=== PATIENT | female | born 1995 | race Caucasian/White ===

== ENCOUNTER 2018-02-02 11:13 | Emergency (ER) | payer OTHER ==
[~2018-02-02] VITALS: Ht 157.5 cm; Wt 45.4 kg
[~2018-02-02 11:13] MED LIST: BENTYL 10 MG CA10 MG PO; FLEXERIL10 MG PO; MOTRIN 600 MG600 MG PO; MULTIVITAMIN1 TAB PO; PEPCID40 MG PO; PERCOCET 325 MG1 TA2 PO; PHENERGAN12.5 M1 PO; VITAMIN C500 M3 PO; ZOFRAN4 M1 SL
--- NOTE | 2018-02-02 12:22 | ED GI/GU/ABDOMINAL COMPLAINT ---
History of Present Illness General Chief Complaint: Nausea, Vomiting, Diarrhea Stated Complaint: STOMACH PAIN,VOMITING,NAUSEA Source: patient, family Exam Limitations: no limitations Allergies Coded Allergies: NO KNOWN ALLERGIES (02/12/15) Triage Note: RECEVED 22 YO FEMALE C/O MID ABDOMINAL PAIN, STARTED THIS AM WITH NAUSEA AND VOMITING MULTIPLE TIMES. PT VOMITING IN TRIAGE, ALMOST FALLING TO THE GROUND. Triage Nurses Notes Reviewed? yes ? y Is pt currently ? No Onset: Abrupt Duration: hour(s): Timing: single episode today Quality/Severity: sharpness, severe Severity Numbers: 10 Location: epigastric HPI: 22yo female G1PO ?4-6weeks presents to ED complaining of severe, sharp epigastric abdominal pain beginning abruptly this morning. Pain described as 10 /10. Patient also with episodes of nausea and vomiting and diarrhea beginning this morning as well. Patient is on short of her last menstrual period, had a home test that was positive last week. Patient has not seen an [employer] [facility] yet for this . Patient states that she does not plan on keeping the . Patient denies history of similar abdominal pain in the past. (Ashanti GARCIA,Anusha Morales) Vital Signs & Intake/Output Vital Signs & Intake/Output Vital Signs Date Time Temp Pulse Resp B/P B/P Pulse O2 O2 Flow FiO2 Mean Ox Delivery Rate 02/02 1903 98.9 100 18 100/56 100 02/02 1804 97.2 98 18 102/65 100 Room Air 02/02 1721 97.0 63 18 117/71 99 Room Air 02/02 1553 120 106/56 02/02 1505 96.2 117 18 97/69 100 Room Air 02/02 1345 Room Air 02/02 1326 97.2 65 18 84/52 100 Room Air 02/02 1139 97.0 102 18 113/77 99 Room Air Reconcile Medications No Known Home Medications (Maryanne CHAUHAN,Dianna) Past History Travel History Traveled to [place] past 21 day No Medical History Any Pertinent Medical History? none Neurological: DENIES EENT: NONE Cardiovascular: NONE Respiratory: NONE Gastrointestinal: NONE Hepatic: NONE Renal: NONE Musculoskeletal: NONE Psychiatric: NONE Endocrine: NONE Blood Disorders: NONE Cancer(s): NONE OUTREACH COORDINATOR/Reproductive: NONE Surgical History Surgical History: non-contributory Psychosocial History What is your primary language Luxembourgish Tobacco Use: Quit >30 days ago Family History Hx Contributory? No (Anusha Samuels) Review of Systems Review of Systems Constitutional: Reports: no symptoms. EENTM: Reports: no symptoms. Respiratory: Reports: no symptoms. Cardiovascular: Reports: no symptoms. GI: Reports: see HPI. Genitourinary: Reports: see HPI. Musculoskeletal: Reports: no symptoms. Skin: Reports: no symptoms. Neurological/Psychological: Reports: no symptoms. Hematologic/Endocrine: Reports: no symptoms. Immunologic/Allergic: Reports: no symptoms. All Other Systems: Reviewed and Negative (Ashanti GARCIA,Anusha Morales) Physical Exam Physical Exam General Appearance: well developed/nourished, alert, awake, moderate distress Head: atraumatic, normal appearance Eyes: Bilateral: normal appearance. Ears, Nose, Throat, Mouth: hearing grossly normal Neck: normal inspection, supple, full range of motion Respiratory: normal breath sounds, no respiratory distress, lungs clear Cardiovascular: tachycardia Gastrointestinal: normal bowel sounds, soft, epigastric tenderness Back: normal inspection, normal range of motion Extremities: normal range of motion Neurologic/Psych: awake, alert, oriented x 3 Skin: intact, warm/dry, pale appearing Core Measures ACS in differential dx? No Sepsis Present: No Sepsis Focused Exam Completed? No (Anusha Samuels) Progress Differential Diagnosis: appendicitis, bowel obstruction, cholecystitis, diverticulitis, ectopic , gastritis, hepatitis, hernia, inflamm bowel dis, intrauterine , kidney stone, ovarian cyst, ovarian torsion, pancreatitis, PID/cervicitis, peptic ulcer, PUD/GERD, SBO, threatened AB, UTI/ pyelo Diagnostic Imaging: Viewed by Me: Ultrasound. Discussed w/RAD: Ultrasound. Radiology Impression: PATIENT: TYRONE CHOUDHARY PRESENT AGE: 22 PATIENT ACCOUNT NO: [id number] : 94 LOCATION: [facility] ORDERING PHYSICIAN: Anusha GARCIA SERVICE DATE: 02/02/18 EXAM TYPE: US - US-COMPLETE ABDOMEN EXAMINATION: US ABDOMEN COMPLETE CLINICAL INFORMATION: Epigastric pain with nausea and vomiting. patient. Confirmed IUP today. COMPARISON: Right upper quadrant ultrasound dated 02/11/2015. TECHNIQUE: Real- time imaging of the abdominal viscera. FINDINGS: PANCREAS: Normal. ABDOMINAL AORTA: The proximal segment is normal in caliber. INFERIOR VENA CAVA: Visualized portions are normal. LIVER: Normal. The liver demonstrates normal size, contour and echogenicity. No focal lesion or intrahepatic biliary duct dilatation. GALLBLADDER: Normal. The gallbladder is physiologically distended without evidence of stones, sludge, polyps, wall thickening or pericholecystic fluid. COMMON BILE DUCT: Normal in caliber measuring 0.3 cm in diameter. RIGHT KIDNEY: Normal. No hydronephrosis. No renal calculi or focal parenchymal lesions. The kidney measures 11.6 cm in maximum dimension. LEFT KIDNEY: Normal. No hydronephrosis. No renal calculi or focal parenchymal lesions. The kidney measures 11.3 cm in maximum dimension. SPLEEN: There is a small peripheral wedge shaped area of hypoechogenicity seen along the capsular margin of the spleen. With color Doppler imaging, no flow is seen in this region. This is a nonspecific finding and is incompletely assessed. This may be related to an old infarct or sequelae of previous trauma. The spleen measures 10.7 cm in maximum dimension. FREE FLUID: None. IMPRESSION: 1. Small avascular subcapsular wedge- shaped area of hyperechogenicity is seen in the spleen, perhaps related to prior splenic infarct or sequelae of old trauma. Close clinical correlation requested. 2. Otherwise normal exam. DICTATED BY: Sanam Ruffin MD DATE/TIME DICTATED:1649 SHEET IRONWORKER:ZIGGY DATE/TIME TRANSCRIBED:02/02/181649 CONFIDENTIAL, DO NOT COPY WITHOUT APPROPRIATE AUTHORIZATION. <Electronically signed in Other Vendor System> SIGNED BY: Sanam Ruffin MD 02/02/181657 , PATIENT: TYRONE CHOUDHARY PRESENT AGE: 22 PATIENT ACCOUNT NO: [id number] : 94 LOCATION: [facility] ORDERING PHYSICIAN: Anusha GARCIA SERVICE DATE: 02/02/181246 EXAM TYPE: US - US TRANSVAG EXAMINATION: US , LESS THAN 14 WEEKS CLINICAL INFORMATION: Acute pain with vomiting. Environmental Field Services Technician unable to confirm COMPARISON: None. TECHNIQUE: Transcutaneous early obstetrical ultrasound. The patient was asked to void completely and reexamined vaginally to better characterize the uterine content and adnexa The study was technically challenging. Technologist reports that the study was performed portably. The patient was in pain and was vomiting FINDINGS: There is a single intrauterine gestation. There is normal amniotic fluid volume. The gestational sac contour is smooth. There is a poorly defined irregular hypoechoic abnormality between the decidual reaction in the myometrium measuring 1.1 x 0.4 cm Cardiac activity was not documented. Somatic activity was not present. A yolk sac is demonstrated There is no suspicious abnormality in the region of the cervix. The cervix measures approximately 2.8 cm. The uterine contour is smooth. There is some decidual reaction. No focal abnormality of the myometrium. No large adnexal mass. The right ovary measures approximately 3.9 x 2.0 x 1.7 cm. No suspicious right adnexal mass or collection. There may be a small corpus luteum cyst. The left ovary measures approximately 3.3 x 1.1 x 1.4 cm. No suspicious left adnexal mass or collection Measurements include: Mean sac diameter-1.5 cm Yolk sac diameter 0.3 cm [place]- rump length-0.4 cm The best estimated gestational age based on a composite of the sonographic measurements is 6 weeks 2 days. This yields an EDC of 09/26/18 No cardiac activity was demonstrated. There is no significant free pelvic fluid. IMPRESSION: There is a well-defined smooth gestational sac with decidual reaction, yolk sac and tiny pole. No cardiac activity or somatic activity. Irregular hypoechoic area adjacent to the decidual reaction may represent a small subchorionic hemorrhage. No adnexal mass or collection Based upon the sonographic measurements the best estimated gestational age is 6 weeks 2 days which yields an EDC of 09/26/18 DICTATED BY: Ryan Martinez MD DATE/TIME DICTATED:02/02/181450 SHEET IRONWORKER:ZIGGY DATE/TIME TRANSCRIBED:1450 CONFIDENTIAL, DO NOT COPY WITHOUT APPROPRIATE AUTHORIZATION. < Electronically signed in Other Vendor System> SIGNED BY: Ryan Martinez MD 02/02/18 1507 Initial ED EKG: none (Ashanti GARCIA,Anusha Morales) Plan of Care: Orders Procedure Date/time Status Add-on Test (ER Only) 02/02 1345 Active HUMAN BETA HCG TITRE 02/02 1236 Complete TYPE & SCREEN (NOT X-MATCH) 02/02 1220 Complete URINE 02/02 1159 Complete URINE DRUG SCREEN FOR ER ONLY 02/02 1159 Complete URINALYSIS 02/02 1159 Complete LIPASE 02/02 1159 Complete COMPREHENSIVE METABOLIC PANEL 02/02 115 Complete CBC WITHOUT DIFFERENTIAL 02/02 1159 Complete AMYLASE 02/02 1159 Complete Laboratory Tests 02/02/18 1307: Urine Color YEL, Urine Clarity CLEAR, Urine pH 6.0, Ur Specific [place] 1.025, Urine Protein TRACE H, Urine Ketones >=80, Urine Nitrite NEG, Urine Bilirubin NEG, Urine Urobilinogen 0.2, Ur Leukocyte Esterase NEG, Ur Microscopic SEDIMENT EXAMINED, Urine RBC RARE, Ur Epithelial Cells MOD H, Urine Bacteria MOD H, Urine Mucus MOD H, Urine Hemoglobin NEG, Urine Glucose NEG, Urine Test POSITIVE 02/02/18 1236: Anion Gap 15, Estimated GFR > 60, BUN/Creatinine Ratio 22.0, Glucose 147 H, Calcium 9.7, Total Bilirubin 0.5, AST 17, ALT 36, Alkaline Phosphatase 59, Total Protein 7.0, Albumin 4.2, Globulin 2.8, Albumin/Globulin Ratio 1.5, Amylase 36, Lipase 37, Beta HCG, Quant 68313.0, CBC w Diff NO MAN DIFF REQ, RBC 4.39, MCV 88.4, MCH 30.4, MCHC 34.4, RDW 12.5, MPV 7.8, Gran % 88.3 H, Lymphocytes % 10.2 L, Monocytes % 1.2 L, Eosinophils % 0, Basophils % 0.3, Absolute Granulocytes 11.2 H, Absolute Lymphocytes 1.3, Absolute Monocytes 0.1, Absolute Eosinophils 0, Absolute Basophils 0 02/02/18 1220: Beta HCG, Quant Cancelled 02/02/18 1159: Urine Opiates Screen < 100, Methadone Screen < 40, Barbiturate Screen < 60, Ur Phencyclidine Scrn < 6.00, Amphetamines Screen < 100, U Benzodiazepines Scrn < 85, Urine Cocaine Screen < 50, Urine Cannabis Screen > 80.[address] Madden present to see and evaluate the patient. Transvaginal ultrasound shows no evidence for ectopic , confirmed IUP. Given patient's her abdominal pain will obtain complete abdominal ultrasound. Ultrasound shows abnormal findings in the sprain such as possible splenic infarct from old trauma. Spoke with Dr. Metz who states she does not recommend anything further from OB/ OUTREACH COORDINATOR standpoint however this patient would benefit from general surgical consult Spoke with Dr. Dobbins regarding this patient. He does not believe abnormal bleeding findings are related to patient's current epigastric pain. He does believe the patient needs further workup and recommends emergent MRI. He states patient would benefit from transfer to [facility], if there are abnormal MRI findings patient would not be candidate for surgery here at [facility] given her early . SPoke with [facility] regarding this patient. Patient accepted by Dr. Anushka Riley. Patient to be transferred for emergent MRI. (Anusha Samuels) (Dianna Madden MD) Departure Departure Disposition: [facility] ([facility]) Condition: Stable Clinical Impression Primary Impression: Abdominal pain affecting Secondary Impressions: Nausea & vomiting Qualifiers: Vomiting type: unspecified Vomiting Intractability: non-intractable Qualified Code: R11.2 - Nausea with vomiting, unspecified Referrals: Ish CHAUHAN,Jennie Bullock (PCP/Family) Departure Forms: Customer Survey General Discharge Information Prescriptions: Current Visit Scripts No Known Home Medications (Anusha Samuels) PA/CHILD CARE SPECIALIST Co-Sign Statement Statement: ED Attending supervision documentation- [X] I saw and evaluated the patient. I have also reviewed all the pertinent lab results and diagnostic results. I agree with the findings and the plan of care as documented in the PA's/CHILD CARE SPECIALIST's documentation. [X] I have reviewed the ED Record and agree with the PA's/CHILD CARE SPECIALIST's documentation. [] Additions or exceptions (if any) to the PAs/CHILD CARE SPECIALIST's note and plan are summarized below: [] (Maryanne CHAUHAN,Dianna)
[2018-02-02 13:02] LABS: ABSOLUTE BASOPHIL COUNT 0 /CUMM (0.0-0.2); ABSOLUTE EOSINOPHIL COUNT 0 /CUMM (0.0-0.7); ABSOLUTE GRANULOCYTE CT 11.2 /CUMM (1.4-6.5); ABSOLUTE LYMPH COUNT 1.3 /CUMM (1.2-3.4); ABSOLUTE MONOCYTE COUNT 0.1 /CUMM (0.10-0.60); BASOPHIL % 0.3 % (0.0-2.0); EOSINOPHIL % 0 % (0-5); HEMATOCRIT 38.8 % (37-47); MEAN CORPUSCULAR HGB 30.4 PG (27.0-31.0); MEAN CORPUSCULAR HGB CONC 34.4 G/DL (33.0-37.0); MEAN CORPUSCULAR VOLUME 88.4 FL (81.0-99.0); MEAN PLATELET VOLUME 7.8 FL (7.4-10.4); PLATELET COUNT 412 /CUMM (130-400); RBC DISTRIBUTION WIDTH 12.5 % (11.5-14.5); RED BLOOD CELL CT 4.39 /CUMM (4.20-5.40); WHITE BLOOD CELL COUNT 12.6 /CUMM (4.8-10.8)
[2018-02-02 13:18] LABS: GRANULOCYTE % 88.3 % (42.2-75.2)
--- NOTE | 2018-02-02 15:07 | ULTRASOUND REPORT ---
EXAMINATION: US , LESS THAN 14 WEEKS CLINICAL INFORMATION: Acute pain with vomiting. Medical Lab Tech Instructor unable to confirm COMPARISON: None. TECHNIQUE: Transcutaneous early obstetrical ultrasound. The patient was asked to void completely and reexamined vaginally to better characterize the uterine content and adnexa The study was technically challenging. Technologist reports that the study was performed portably. The patient was in pain and was vomiting FINDINGS: There is a single intrauterine gestation. There is normal amniotic fluid volume. The gestational sac contour is smooth. There is a poorly defined irregular hypoechoic abnormality between the decidual reaction in the myometrium measuring 1.1 x 0.4 cm Cardiac activity was not documented. Somatic activity was not present. A yolk sac is demonstrated There is no suspicious abnormality in the region of the cervix. The cervix measures approximately 2.8 cm. The uterine contour is smooth. There is some decidual reaction. No focal abnormality of the myometrium. No large adnexal mass. The right ovary measures approximately 3.9 x 2.0 x 1.7 cm. No suspicious right adnexal mass or collection. There may be a small corpus luteum cyst. The left ovary measures approximately 3.3 x 1.1 x 1.4 cm. No suspicious left adnexal mass or collection Measurements include: Mean sac diameter-1.5 cm Yolk sac diameter 0.3 cm [place]-rump length-0.4 cm The best estimated gestational age based on a composite of the sonographic measurements is 6 weeks 2 days. This yields an EDC of 09/26/18 No cardiac activity was demonstrated. There is no significant free pelvic fluid. IMPRESSION: There is a well-defined smooth gestational sac with decidual reaction, yolk sac and tiny pole. No cardiac activity or somatic activity. Irregular hypoechoic area adjacent to the decidual reaction may represent a small subchorionic hemorrhage. No adnexal mass or collection Based upon the sonographic measurements the best estimated gestational age is 6 weeks 2 days which yields an EDC of 09/26/18
--- NOTE | 2018-02-02 16:58 | ULTRASOUND REPORT ---
EXAMINATION: US ABDOMEN COMPLETE CLINICAL INFORMATION: Epigastric pain with nausea and vomiting. patient. Confirmed IUP today. COMPARISON: Right upper quadrant ultrasound dated 02/11/2015. TECHNIQUE: Real-time imaging of the abdominal viscera. FINDINGS: PANCREAS: Normal. ABDOMINAL AORTA: The proximal segment is normal in caliber. INFERIOR VENA CAVA: Visualized portions are normal. LIVER: Normal. The liver demonstrates normal size, contour and echogenicity. No focal lesion or intrahepatic biliary duct dilatation. GALLBLADDER: Normal. The gallbladder is physiologically distended without evidence of stones, sludge, polyps, wall thickening or pericholecystic fluid. COMMON BILE DUCT: Normal in caliber measuring 0.3 cm in diameter. RIGHT KIDNEY: Normal. No hydronephrosis. No renal calculi or focal parenchymal lesions. The kidney measures 11.6 cm in maximum dimension. LEFT KIDNEY: Normal. No hydronephrosis. No renal calculi or focal parenchymal lesions. The kidney measures 11.3 cm in maximum dimension. SPLEEN: There is a small peripheral wedge shaped area of hypoechogenicity seen along the capsular margin of the spleen. With color Doppler imaging, no flow is seen in this region. This is a nonspecific finding and is incompletely assessed. This may be related to an old infarct or sequelae of previous trauma. The spleen measures 10.7 cm in maximum dimension. FREE FLUID: None. IMPRESSION: 1. Small avascular subcapsular wedge-shaped area of hyperechogenicity is seen in the spleen, perhaps related to prior splenic infarct or sequelae of old trauma. Close clinical correlation requested. 2. Otherwise normal exam.
[2018-02-02 19:03] VITALS: BP 100/56
== END 2018-02-02 19:04 | disposition short-term general hospital (02) ==
LOC: ERH 11:13
PROVIDERS: Physician Assistant
DX: O26.91 Pregnancy related conditions, unspecified, first trimester (principal); R10.13 Epigastric pain; R11.2 Nausea with vomiting, unspecified; Z3A.01 Less than 8 weeks gestation of pregnancy
CPT/HCPCS: 76817; 80307; 81001; 81025; 96374; 96375; 96376; J0131; J1200; J2405